=== PATIENT | female | born 1970 | race Caucasian/White ===

== ENCOUNTER 2017-01-30 16:25 | Emergency (ER) | payer SELFPAY ==
[2017-01-30 16:30] VITALS: BMI 34.6
--- NOTE | 2017-01-30 18:23 | C.PDOC ---
History Of Present Illness 46 year old female presents to the ED c/o a rash on the lateral aspect of the breasts bilateral, non pruritic, non painful for the past 2 days, she also c/o chest wall discomfort bilaterally to the parasternal aspect. Patient's physical exam was chaperoned by nurse Zita. Time Seen by Provider: 01/30/17 17:00 Chief Complaint (Nursing): Abnormal Skin Integrity History Per: Patient History/Exam Limitations: no limitations Onset/Duration Of Symptoms: Days Current Symptoms Are (Timing): Still Present Location Of Injury: Right: Chest (Parasternal, bilateral lateral breasts), Left : Chest, Anterior: Chest Quality Of Symptoms: Other (Rash). denies: Painful, Itching Recent travel outside of the [place]: No Additional History Per: Patient Past Medical History Reviewed: Historical Data, Nursing Documentation, Vital Signs Vital Signs: Last Vital Signs Temp 98.4 F 01/30/17 18:50 Pulse 68 01/30/17 18:50 Resp 16 01/30/17 18:50 BP 148/74 01/30/17 18:50 Pulse Ox 98 01/30/17 20:13 - Medical History PMH: No Chronic Diseases Surgical History: No Surg Hx Family History: States: Unknown Family Hx - Social History Hx Alcohol Use: No Hx Substance Use: No - Immunization History Hx Tetanus Toxoid Vaccination: No Hx Influenza Vaccination: Yes (12/2016) Hx Pneumococcal Vaccination: No Review Of Systems Constitutional: Negative for: Fever, Chills Cardiovascular: Positive for: Chest Pain (Parasternal bilateral). Negative for : Palpitations Respiratory: Negative for: Cough, Shortness of Breath Gastrointestinal: Negative for: Nausea, Vomiting, Abdominal Pain Skin: Positive for: Rash (Bilateral lateral breasts) Neurological: Negative for: Weakness, Numbness Physical Exam - Physical Exam Appears: Non-toxic, No Acute Distress Skin: Rash (Bilateral lateral breasts, distributions of the bra) Head: Atraumatic, Normacephalic Oral Mucosa: Moist Neck: Normal ROM, Supple Lymphatic: No Adenopathy Chest: Symmetrical, Tenderness (Digitally reproducible intercostal spaces bilateral parasternal area) Cardiovascular: Rhythm Regular, No Murmur Respiratory: Normal Breath Sounds, No Accessory Muscle Use, No Rales, No Rhonchi , No Wheezing Gastrointestinal/Abdominal: Soft, No Tenderness Extremity: Normal ROM, No Pedal Edema, No Calf Tenderness, No Swelling Neurological/Psych: Oriented x3, Normal Speech, Normal Cognition Gait: Steady ED Course And Treatment O2 Sat by Pulse Oximetry: 98 (On RA) Pulse Ox Interpretation: Normal Medical Decision Making Medical Decision Making: mild non-pruritic rash b/l lateral breasts NOT c/w Zoster, probab irritation from bra material Talk power educated. body aches, motrin Disposition Doctor Will See Patient In The: Office Counseled Patient/Family Regarding: Studies Performed, Diagnosis - Disposition Referrals: Sarah Green MD [Staff Provider] - Disposition: HOME/ ROUTINE Disposition Time: 18:23 Condition: GOOD Additional Instructions: breast rash: continue baby powder 2x/day Chest wall discomfort: motrin 400-600 mg every 6 hours as needed Follow-up w Dr. Green as needed. Instructions: Costochondritis (ED), Dermatitis (ED) Forms: [facility] (Faroese) - Clinical Impression Clinical Impression: Rash, Chest wall discomfort - Scribe Statement The provider has reviewed the documentation as recorded by the Scribe Kenneth Hung All medical record entries made by the Scribe were at my direction and personally dictated by me. I have reviewed the chart and agree that the record accurately reflects my personal performance of the history, physical exam, medical decision making, and the department course for this patient. I have also personally directed, reviewed, and agree with the discharge instructions and disposition.
[2017-01-30 18:51] VITALS: BP 148/74; PULSE 68; RESP 16; TEMP 98.4
[2017-01-30 20:08] VITALS: O2SAT 98
== END 2017-01-30 18:51 | disposition home or self-care (01) ==
LOC: C.ER 16:25
DX: R07.89 Other chest pain (principal); R21 Rash and other nonspecific skin eruption

== ENCOUNTER 2017-02-03 18:01 | Emergency (ER) | payer SELFPAY ==
[2017-02-03 18:01] VITALS: BMI 34.6
[2017-02-03 18:20] VITALS: BP 121/85; PULSE 81; RESP 20; TEMP 99; O2SAT 99
--- NOTE | 2017-02-03 19:10 | C.PDOC ---
History Of Present Illness 46 y/o female presents to ED with complaints of diffuse rash worsening over 4 days. Patient states rash started initially to lateral aspect of both breasts and was itchy; and over 4 days, has spread to entire body. Patient denies using new soaps, shampoos, creams, medication, or foods. pt has mild cough. denies fever, sob, chills. denies sick contacts. denies any recent travel. Time Seen by Provider: 02/03/17 18:55 Chief Complaint (Nursing): Abnormal Skin Integrity History Per: Patient, Family History/Exam Limitations: no limitations Onset/Duration Of Symptoms: Days Current Symptoms Are (Timing): Still Present Quality Of Symptoms: Itching Severity: Moderate Additional History Per: Family Past Medical History Reviewed: Historical Data, Nursing Documentation, Vital Signs Vital Signs: Last Vital Signs Temp 99.0 F 02/03/17 18:16 Pulse 81 02/03/17 18:16 Resp 20 02/03/17 21:23 BP 121/85 02/03/17 18:16 Pulse Ox 99 02/07/17 00:04 - Medical History PMH: No Chronic Diseases Surgical History: No Surg Hx Family History: States: No Known Family Hx - Social History Hx Tobacco Use: No Hx Alcohol Use: No Hx Substance Use: No - Immunization History Hx Tetanus Toxoid Vaccination: No Hx Influenza Vaccination: Yes (12/2016) Hx Pneumococcal Vaccination: No Review Of Systems Constitutional: Negative for: Fever, Chills Cardiovascular: Negative for: Chest Pain Respiratory: Positive for: Cough. Negative for: Shortness of Breath, Hemoptysis , Sputum Gastrointestinal: Negative for: Vomiting, Abdominal Pain Skin: Positive for: Rash Neurological: Negative for: Weakness, Numbness Physical Exam - Physical Exam Appears: Well, Non-toxic, No Acute Distress Skin: Warm, Dry, Rash (diffuse fine maculopapular rash to arms, legs, anterior chest, back. coalesced rash to bilateral lateral breasts. ) Eye(s): bilateral: Normal Inspection Oral Mucosa: Moist, Other (no koplik spots noted) Tongue: Normal Appearing Lips: Normal Appearing Teeth: Normal Dentition Throat: Normal, No Erythema, Other (no lopliks spots noted) Neck: Normal ROM, Supple Chest: No Deformity, No Tenderness Cardiovascular: Rhythm Regular, No Murmur Respiratory: Normal Breath Sounds, No Rales, No Rhonchi, No Stridor, No Wheezing Gastrointestinal/Abdominal: Soft, No Tenderness Extremity: Normal ROM, No Tenderness, No Pedal Edema Neurological/Psych: Oriented x3, Normal Speech, Normal Cognition, Normal Motor, Normal Sensation Additional Physical Exam Comments: Constitutional: No acute distress. Overweight Head: Normocephalic. Atraumatic. Eyes: PERRL. EOMI. ENT: Moist mucous membranes. Neck: Supple. (-)meningeal signs Cardiovascular: Regular rate and rhythm. Chest: No tenderness. Respiratory: Clear to auscultation bilaterally. GI: Soft. Nontender. Nondistended. Normoactive bowel sounds. No rebound. No guarding. Back: No CVA and no mid-line tenderness. Musculoskeletal: No tenderness or swelling of extremities. Skin: maculopapular rash to chest, bilateral breast, abdomen, legs and back Neurologic: Alert, no focal deficit. ED Course And Treatment - Laboratory Results Result Diagrams: 02/03/17 19:42 02/03/17 19:42 O2 Sat by Pulse Oximetry: 99 (RA) Pulse Ox Interpretation: Normal Medical Decision Making Medical Decision Making: pt with diffuse maculopapular rash to body with no new substances. no fever or chills, non toxic appearing. pt with normal labs. pt given solumedrol and benadryl, with mild decrease in rash while in ED. pt to be discharged with benadryl and prednisone with close pmd f/u. Disposition Counseled Patient/Family Regarding: Studies Performed, Diagnosis, Need For Followup, Rx Given - Disposition Referrals: [facility] [Outside] [facility] [Outside] Disposition: HOME/ ROUTINE Disposition Time: 21:12 Condition: STABLE Additional Instructions: Follow up in medical clinic on Wednesday. Take medications as prescribed. You may feel drowsy from the diphenhydramine. Return to ER if rash worsens, you develop fever or for any other concerning symptoms. Prescriptions: DiphenhydrAMINE [Benadryl] 25 mg PO Q6 #30 cap predniSONE [predniSONE Tab] 2 tab PO DAILY #8 tab Instructions: Acute Rash (ED) Forms: [facility] (Sammarinese), General Discharge Instructions - Clinical Impression Clinical Impression: Rash - PA / MANAGER SEMICONDUCTOR / Resident Statement MD/DO has reviewed & agrees with the documentation as recorded. - Scribe Statement The provider has reviewed the documentation as recorded by the Scribmanuel Mckoy All medical record entries made by the Tracyibmanuel were at my direction and personally dictated by me. I have reviewed the chart and agree that the record accurately reflects my personal performance of the history, physical exam, medical decision making, and the department course for this patient. I have also personally directed, reviewed, and agree with the discharge instructions and disposition.
[2017-02-03] MEDS ORDERED: MethylPREDNISolone 40 mg Vial IVP STA (19:15)
[2017-02-03] MEDS ORDERED: DiphenhydrAMINE 50 mg/ml Inj IVP STA (19:17)
[2017-02-03 19:48] LABS: BASO % 0.9 % (0.0-2.0); EOS # 0.2 K/uL (0.0-0.7); EOS % 3.7 % (0.0-4.0); HEMATOCRIT 37.3 % (34.0-47.0); LYMPH # 0.9 K/uL (1.0-4.3); LYMPH % 17.7 % (20.0-40.0); MEAN CELL VOLUME 82.4 fL (81.0-99.0); MEAN CORPUSCULAR HEMOGLOBIN 27.5 pg (27.0-31.0); MEAN CORPUSCULAR HGB CONC 33.3 g/dL (33.0-37.0); MEAN PLATELET VOLUME 8.6 fL (7.2-11.7); MONO # 0.2 K/uL (0.0-0.8); MONO % 5.1 % (0.0-10.0); NRBC % 0.1 % (0.0-2.0); WHITE BLOOD COUNT 4.9 K/uL (4.8-10.8)
[2017-02-03] MEDS ORDERED: DiphenhydrAMINE 50 mg/ml Inj ONE (19:49)
[2017-02-03 19:55] LABS: INR 1.1
[2017-02-03 19:56] LABS: RBC URINE 6 /hpf (0-3); URINE BACTERIA MOD (<OCC); URINE BILIRUBIN NEGATIVE (NEGATIVE); URINE BLOOD 1+ (NEGATIVE); URINE COLOR Yellow (YELLOW); URINE GLUCOSE (UA) NORMAL (Normal); URINE KETONE 1+ mg/dL (NEGATIVE); URINE LEUKOCYTE ESTERASE NEG Leu/uL (Negative); URINE PROTEIN NEGATIVE (NEGATIVE); URINE UROBILINOGEN NORMAL mg/dL (0.2-1.0); WBC URINE 3 /hpf (0-5)
[2017-02-03 20:12] LABS: ALB/GLOB RATIO 1.3 (1.0-2.1); ALKALINE PHOSPHATASE 66 U/L (38-126); ALT/SGPT 42 U/L (9-52); AST/SGOT 24 U/L (14-36); BILIRUBIN,TOTAL 0.8 mg/dL (0.2-1.3); BLOOD UREA NITROGEN 7 mg/dL (7-17); CALCIUM 8.4 mg/dl (8.6-10.4); CARBON DIOXIDE 25 mmol/L (22-30); CHLORIDE 99 mmol/L (98-107); GFR AFRICAN-AMERICAN > 60; GLUCOSE,RANDOM 97 mg/dL (65-105); POTASSIUM 3.5 mmol/L (3.6-5.2); SODIUM 133 mmol/L (132-148); TOTAL PROTEIN 7.2 g/dL (6.3-8.3)
== END 2017-02-03 21:23 | disposition home or self-care (01) ==
LOC: C.ER 18:01
DX: R21 Rash and other nonspecific skin eruption (principal)
CPT/HCPCS: 80053; 81001; 85025; 85610; 85730; 96374; 96375; 99283; J1200; J2920

== ENCOUNTER 2017-02-23 03:28 | Emergency (ER) | payer SELFPAY ==
[2017-02-23 03:28] VITALS: BMI 40.0
[2017-02-23 03:42] VITALS: O2SAT 96
--- NOTE | 2017-02-23 03:48 | C.PDOC ---
Time Seen by Provider: 02/23/17 03:46 Chief Complaint (Nursing): Flu-like Symptoms Past Medical History Vital Signs: Last Vital Signs Temp 98.6 F 02/23/17 03:36 Pulse 70 02/23/17 03:36 Resp 20 02/23/17 03:36 BP 121/83 02/23/17 03:36 Pulse Ox 96 02/23/17 03:36 Family History: States: Unknown Family Hx - Social History Hx Tobacco Use: No Hx Alcohol Use: No Hx Substance Use: No - Immunization History Hx Tetanus Toxoid Vaccination: No Hx Influenza Vaccination: Yes (12/2016) Hx Pneumococcal Vaccination: No ED Course And Treatment O2 Sat by Pulse Oximetry: 96 Disposition - Disposition
--- NOTE | 2017-02-23 04:09 | C.PDOC ---
History Of Present Illness 46 y/o female presents to ER with c/o of generalized body aches x 1wk. Pt took OTC advil with no relief. Pt denies trauma, URI sx, fever, weakness or worse Time Seen by Provider: 02/23/17 03:46 Chief Complaint (Nursing): Flu-like Symptoms History Per: Patient History/Exam Limitations: no limitations Current Symptoms Are (Timing): Still Present Severity: Moderate Past Medical History Vital Signs: Last Vital Signs Temp 98.6 F 02/23/17 03:36 Pulse 70 02/23/17 03:36 Resp 20 02/23/17 03:36 BP 121/83 02/23/17 03:36 Pulse Ox 96 02/23/17 03:48 - Medical History PMH: No Chronic Diseases Family History: States: Unknown Family Hx - Social History Hx Tobacco Use: No Hx Alcohol Use: No Hx Substance Use: No - Immunization History Hx Tetanus Toxoid Vaccination: No Hx Influenza Vaccination: Yes (12/2016) Hx Pneumococcal Vaccination: No Review Of Systems Constitutional: Negative for: Fever Musculoskeletal: Positive for: Other (Joint pain- diffuse) Neurological: Negative for: Weakness, Numbness Physical Exam - Physical Exam Appears: Well, Non-toxic, No Acute Distress Skin: Warm Head: Atraumatic Eye(s): bilateral: Normal Inspection, PERRL, EOMI Oral Mucosa: Moist Throat: Normal Neck: Normal, Supple Chest: Symmetrical, No Tenderness Cardiovascular: Rhythm Regular, No Murmur Respiratory: Normal Breath Sounds, No Rhonchi, No Wheezing Gastrointestinal/Abdominal: Normal Exam, Soft, No Tenderness Back: Normal Inspection Extremity: Normal ROM (but minimal pain to all extremities on motion ), Tenderness (minimally diffuse jt on palpation), No Pedal Edema, Capillary Refill (<2 sec), No Deformity, No Swelling, Other Extremity: Bilateral: Atraumatic, Normal Color And Temperature Pulses: Left Radial: Normal, Right Radial: Normal, Left Dorsalis Pedis: Normal, Right Dorsalis Pedis: Normal Neurological/Psych: Oriented x3, Normal Motor, Normal Sensation Gait: Steady ED Course And Treatment O2 Sat by Pulse Oximetry: 96 Pulse Ox Interpretation: Normal Progress Note: Toradol IM and PO prednisone ordered. On reassessment pt reports improvement of the pain and in no acute painful distress. Pt eill follow up in clinic, return precautions discussed and understoos by pt. ( spouse at bedside translated with pt's consent) Reassessment Condition: Improved Disposition Counseled Patient/Family Regarding: Diagnosis, Need For Followup, Rx Given - Disposition Referrals: [facility] [Outside] Disposition: HOME/ ROUTINE Disposition Time: 04:19 Condition: STABLE Additional Instructions: Please take all medications as peescribed Follow up in clinic Retun to ER if worse Prescriptions: Naproxen [Naprosyn] 1 tab PO BID PRN #20 tab PRN Reason: Pain predniSONE [Prednisone] 20 mg PO DAILY #7 tab Instructions: Arthralgia (ED) Forms: [facility] (Croatian) - Clinical Impression Clinical Impression: Arthralgia
[2017-02-23 05:19] VITALS: BP 112/79; PULSE 61; RESP 22; TEMP 98.2
== END 2017-02-23 05:09 | disposition home or self-care (01) ==
LOC: C.ER 03:28
DX: M25.50 Pain in unspecified joint (principal)
CPT/HCPCS: 96372; 99284; J1885

== ENCOUNTER 2017-09-21 22:11 | Emergency (ER) | payer MEDICAID, OTHER ==
[2017-09-21 22:12] VITALS: BMI 38.5
--- NOTE | 2017-09-21 22:23 | C.PDOC ---
History Of Present Illness Patient presents to the ER with a complaint of left breast pain that radiates to the neck since yesterday, associated with 1 episode of vomiting this morning. Medics gave patient 324 aspirin and 2 sublingual nitro without any relief. On arrival patient states the pain is to her left breast. Denies SOB, palpitations, fever, or chills. Time Seen by Provider: 09/21/17 22:23 History Per: Patient History/Exam Limitations: no limitations Onset/Duration Of Symptoms: Days Current Symptoms Are (Timing): Still Present Context: Other Severity: Moderate Pain Scale Rating Of: 4 Quality: Dull Associated Symptoms: Other (Vomiting) Modifying Factors: None Exacerbating Factors: None Alleviating Factors: None Recent travel outside of the [place]: No Additional History Per: Patient Past Medical History Reviewed: Historical Data, Nursing Documentation, Vital Signs Vital Signs: Last Vital Signs Temp 97.9 F 09/21/17 22:24 Pulse 70 09/21/17 22:24 Resp 16 09/21/17 22:24 BP 125/54 L 09/21/17 22:24 Pulse Ox 98 09/21/17 22:24 Surgical History: No Surg Hx Family History: States: No Known Family Hx - Social History Hx Tobacco Use: No Hx Alcohol Use: No Hx Substance Use: No - Immunization History Hx Tetanus Toxoid Vaccination: No Hx Influenza Vaccination: Yes (12/2016) Hx Pneumococcal Vaccination: No Review Of Systems Constitutional: Negative for: Fever, Chills Cardiovascular: Negative for: Chest Pain, Palpitations Respiratory: Negative for: Cough, Shortness of Breath Gastrointestinal: Positive for: Vomiting Genitourinary: Negative for: Dysuria Musculoskeletal: Positive for: Other (Left breast pain) Skin: Negative for: Rash Neurological: Negative for: Weakness, Numbness Psych: Positive for: Anxiety Physical Exam - Physical Exam Appears: Non-toxic Skin: Warm, Dry Head: Normacephalic Eye(s): bilateral: Normal Inspection Oral Mucosa: Moist Neck: Supple Chest: Other (Left breast 3x6cm mass on lateral aspect(patient examined with nurse at bedside)) Cardiovascular: Rhythm Regular Respiratory: No Rales, No Rhonchi, No Wheezing Gastrointestinal/Abdominal: Soft, No Tenderness Back: Normal Inspection Extremity: Normal ROM Extremity: Bilateral: Atraumatic Pulses: Left Dorsalis Pedis: Normal, Right Dorsalis Pedis: Normal Neurological/Psych: Oriented x3 Gait: Steady ED Course And Treatment - Laboratory Results Result Diagrams: 09/22/17 00:15 09/22/17 00:15 ECG: Interpreted By Me, Viewed By Me ECG Rhythm: Sinus Rhythm (61), Nonspecific Changes Pulse Ox Interpretation: Normal - Radiology CXR: Interpreted by Me, Viewed By Me CXR Interpretation: No: Infiltrates, Fracture, Pnemothorax Progress Note: EKG, blood work, CXR, urinalysis, and breast US ordered. Reevaluation Time: 01:54 Reassessment Condition: Improved Disposition Counseled Patient/Family Regarding: Studies Performed, Diagnosis, Need For Followup, Rx Given - Disposition Referrals: [facility] [Outside] [facility] [Outside] [facility] [Outside] Disposition: HOME/ ROUTINE Disposition Time: 22:23 Condition: FAIR Additional Instructions: [facility] Prescriptions: Naproxen [Naprosyn] 1 tab PO BID PRN #25 tab PRN Reason: Pain Instructions: Mastalgia (DC) - Clinical Impression Clinical Impression: Cyst of breast, Pain of breast - Scribe Statement The provider has reviewed the documentation as recorded by the Scribe Samuel Damico All medical record entries made by the Scribe were at my direction and personally dictated by me. I have reviewed the chart and agree that the record accurately reflects my personal performance of the history, physical exam, medical decision making, and the department course for this patient. I have also personally directed, reviewed, and agree with the discharge instructions and disposition.
[2017-09-21 22:30] VITALS: TEMP 97.9
[2017-09-21] MEDS ORDERED: Aspirin 325 mg EC Tablets PO STA (22:32)
[2017-09-22 00:23] LABS: BASO # 0.1 K/uL (0.0-0.2); BASO % 0.9 % (0.0-2.0); EOS # 0.1 K/uL (0.0-0.7); EOS % 1.5 % (0.0-4.0); HEMOGLOBIN 10.9 g/dL (11.0-16.0); LYMPH # 2.1 K/uL (1.0-4.3); LYMPH % 36.7 % (20.0-40.0); MEAN CELL VOLUME 79.3 fL (81.0-99.0); MEAN CORPUSCULAR HEMOGLOBIN 26.2 pg (27.0-31.0); MEAN CORPUSCULAR HGB CONC 33.1 g/dL (33.0-37.0); MEAN PLATELET VOLUME 9.4 fL (7.2-11.7); MONO # 0.3 K/uL (0.0-0.8); NEUT # 3.1 K/uL (1.8-7.0); NEUT % 54.9 % (50.0-75.0); RBC 4.17 Mil/uL (3.80-5.20); RED CELL DISTRIBUTION WIDTH 15.2 % (11.5-14.5); WHITE BLOOD COUNT 5.7 K/uL (4.8-10.8)
[2017-09-22 00:32] LABS: PROTHROMBIN TIME 11.4 SECONDS (9.7-12.2)
[2017-09-22 00:51] LABS: SQUAMOUS EPITHIAL 2 /hpf (0-5); URINE BACTERIA RARE (<OCC); URINE BILIRUBIN NEGATIVE (NEGATIVE); URINE BLOOD NEGATIVE (NEGATIVE); URINE CLARITY Clear (Clear); URINE COLOR Straw (YELLOW); URINE GLUCOSE (UA) NORMAL (Normal); URINE LEUKOCYTE ESTERASE NEG Leu/uL (Negative); URINE PROTEIN NEGATIVE (NEGATIVE); URINE UROBILINOGEN NORMAL mg/dL (0.2-1.0)
[2017-09-22 00:57] LABS: ALB/GLOB RATIO 1.3 (1.0-2.1); ALBUMIN 3.8 g/dL (3.5-5.0); CALCIUM 8.5 mg/dl (8.6-10.4); GFR AFRICAN-AMERICAN > 60; GFR NON-AFRICAN AMERICAN > 60; HDL CHOLESTEROL 40 mg/dL (30-70)
[2017-09-22 01:06] LABS: LDL CHOLESTEROL 114 mg/dL (0-129)
[2017-09-22 01:17] LABS: B-TYPE NATRIURETIC PEPTIDE 88.9 pg/mL (0-450)
[2017-09-22 01:19] LABS: ALT/SGPT 24 U/L (9-52); AST/SGOT 20 U/L (14-36); BLOOD UREA NITROGEN 6 mg/dL (7-17)
[2017-09-22 02:31] VITALS: BP 143/89; PULSE 58; RESP 20; O2SAT 100
--- NOTE | 2017-09-22 10:01 | US ---
Date of service: 09/21/2017 PROCEDURE: Ultrasound left breast HISTORY: left breast mass Pain -2010 o'clock COMPARISON: None TECHNIQUE: Standard protocol for this study/examination. FINDINGS: Cyst(s): Complex cyst 2-3 o'clock 8 cm from nipple 6 x 9 x 10 mm. Breast mass: None Dilated ducts: None Parenchymal distortion: None Skin thickening or subcutaneous abnormalities: None Morphologically, unremarkable lymph node(s) measuring 7 x 17 mm. No abnormalities in the region of interest with the patient presents with pain. IMPRESSION: BIRADS 0 Incomplete - Need additional imaging evaluation and/or prior mammograms for comparisonRecommendation: Recall for additional imaging and/or comparison with prior examination, as described above. Patient will be contacted. Recommendation: Follow-up mammogram to be compared with the current study.
--- NOTE | 2017-09-22 10:05 | RAD ---
Date of service: 09/21/2017 PROCEDURE: CHEST RADIOGRAPH, 1 VIEW HISTORY: chest pain COMPARISON: 01/27/2017 FINDINGS: LUNGS: Clear. PLEURA: No pneumothorax or pleural fluid seen. CARDIOVASCULAR: Normal. OSSEOUS STRUCTURES: No significant abnormalities. VISUALIZED UPPER ABDOMEN: Normal. OTHER FINDINGS: None. IMPRESSION: No active disease. No acute/significant interval changes. Concordant results with the preliminary interpretation rendered by the emergency department physician procedure.
--- NOTE | 2017-09-23 12:16 | CARD ---
APPROVED REPORT Date of service: 09/21/2017 EKG Measurement Heart [id number] <Conclusion> Normal sinus rhythm Nonspecific T wave abnormality Abnormal ECG
== END 2017-09-22 02:30 | disposition home or self-care (01) ==
LOC: C.ER 22:11
DX: N60.02 Solitary cyst of left breast (principal); N64.4 Mastodynia
CPT/HCPCS: 71045; 76642; 80053; 80061; 81001; 82948; 83880; 84484; 85025; 85610; 85730; 93005; 96374; 99285; J1885

== ENCOUNTER 2017-12-17 07:50 | Emergency (ER) | payer SELFPAY ==
[2017-12-17 07:50] VITALS: BMI 38.5
[2017-12-17 08:01] VITALS: PULSE 66; TEMP 98.6
[2017-12-17] MEDS ORDERED: Sodium Chloride 0.9% 1,000 ML IV STA (08:14)
[2017-12-17 08:41] LABS: HCG,QUALITATIVE URINE NEGATIVE (NEGATIVE)
[2017-12-17] MEDS ORDERED: Sodium Chloride 0.9% 1,000 ML ONE (08:41)
[2017-12-17 08:46] LABS: SQUAMOUS EPITHIAL 2 /hpf (0-5); URINE BACTERIA OCC (<OCC); URINE BILIRUBIN NEGATIVE (NEGATIVE); URINE BLOOD NEGATIVE (NEGATIVE); URINE CLARITY Clear (Clear); URINE COLOR Straw (YELLOW); URINE GLUCOSE (UA) NORMAL (Normal); URINE LEUKOCYTE ESTERASE NEG Leu/uL (Negative); URINE PROTEIN NEGATIVE (NEGATIVE); URINE UROBILINOGEN NORMAL mg/dL (0.2-1.0)
[2017-12-17 08:47] LABS: BASO % 0.7 % (0.0-2.0); EOS # 0.1 K/uL (0.0-0.7); EOS % 1.4 % (0.0-4.0); HEMOGLOBIN 11.8 g/dL (11.0-16.0); LYMPH # 2.4 K/uL (1.0-4.3); LYMPH % 34.7 % (20.0-40.0); MEAN CELL VOLUME 78.6 fL (81.0-99.0); MEAN CORPUSCULAR HEMOGLOBIN 25.8 pg (27.0-31.0); MEAN CORPUSCULAR HGB CONC 32.8 g/dL (33.0-37.0); MONO # 0.5 K/uL (0.0-0.8); MONO % 6.6 % (0.0-10.0); NEUT # 3.9 K/uL (1.8-7.0); NEUT % 56.6 % (50.0-75.0); RBC 4.58 Mil/uL (3.80-5.20); RED CELL DISTRIBUTION WIDTH 15.3 % (11.5-14.5)
[2017-12-17 09:10] LABS: ALB/GLOB RATIO 1.4 (1.0-2.1); ALBUMIN 4.4 g/dL (3.5-5.0); ALT/SGPT 22 U/L (9-52); AST/SGOT 18 U/L (14-36); BLOOD UREA NITROGEN 6 mg/dL (7-17); CALCIUM 9.3 mg/dl (8.6-10.4); GFR NON-AFRICAN AMERICAN > 60
--- NOTE | 2017-12-17 10:48 | CT ---
Date of service: 12/17/2017 PROCEDURE: CT HEAD WITHOUT CONTRAST. HISTORY: headache, dizziness COMPARISON: None available. TECHNIQUE: Axial computed tomography images were obtained through the head/brain without intravenous contrast. Radiation dose: Total exam DLP = 1177.69 mGy-cm. This CT exam was performed using one or more of the following dose reduction techniques: Automated exposure control, adjustment of the mA and/or kV according to patient size, and/or use of iterative reconstruction technique. FINDINGS: HEMORRHAGE: No intracranial hemorrhage. BRAIN: There are mild chronic microangiopathic changes. There is no mass, mass effect or abnormal extra-axial fluid collection. There is no territorial infarction. The midline sagittal structures are normal. VENTRICLES: The ventricles are normal in size, shape and configuration. CALVARIUM: There is no calvarial fracture or extracranial soft tissue swelling. PARANASAL SINUSES: Predominantly clear. MASTOID AIR CELLS: Predominantly clear. OTHER FINDINGS: None. IMPRESSION: No acute intracranial abnormality.
[2017-12-17 11:26] VITALS: BP 112/73; RESP 18
[2017-12-17 11:27] VITALS: O2SAT 98
--- NOTE | 2017-12-17 11:27 | C.PDOC ---
History Of Present Illness 47 y/o female presents to ED for evaluation of dizziness, and intermittent headache for the last 4 days. Notes dizziness is worse when she moves her head and when bending over. Pt admits to having 2 episodes of vomiting. Denies visual changes, weakness, numbness, chest pain, shortness of breath, fever, chills, abdominal pain, or other complaints at this time. Time Seen by Provider: 12/17/17 08:07 Chief Complaint (Nursing): Dizziness/Lightheaded History Per: Patient History/Exam Limitations: no limitations Onset/Duration Of Symptoms: Days Current Symptoms Are (Timing): Still Present Past Medical History Reviewed: Historical Data, Nursing Documentation, Vital Signs Vital Signs: Last Vital Signs Temp 98.6 F 12/17/17 07:55 Pulse 66 12/17/17 07:55 Resp 19 12/17/17 07:55 BP 114/77 12/17/17 07:55 Pulse Ox 98 12/17/17 07:55 Family History: States: Unknown Family Hx - Social History Hx Tobacco Use: No Hx Alcohol Use: No Hx Substance Use: No - Immunization History Hx Tetanus Toxoid Vaccination: No Hx Influenza Vaccination: Yes (12/2016) Hx Pneumococcal Vaccination: No Review Of Systems Except As Marked, All Systems Reviewed And Found Negative. Constitutional: Negative for: Fever, Chills Cardiovascular: Negative for: Chest Pain Respiratory: Negative for: Shortness of Breath Gastrointestinal: Positive for: Nausea, Vomiting. Negative for: Abdominal Pain, Diarrhea Neurological: Positive for: Headache, Dizziness. Negative for: Weakness, Numbness Physical Exam - Physical Exam Appears: Non-toxic, No Acute Distress Skin: Normal Color, Warm, Dry Head: Atraumatic, Normacephalic Eye(s): bilateral: Normal Inspection Oral Mucosa: Moist Neck: Normal ROM, Supple Cardiovascular: Rhythm Regular, No Murmur Respiratory: Normal Breath Sounds, No Rales, No Rhonchi, No Wheezing Gastrointestinal/Abdominal: Soft, No Tenderness Extremity: Normal ROM Neurological/Psych: Oriented x3, Normal Speech, No Other (no focal deficits) ED Course And Treatment - Laboratory Results Result Diagrams: 12/17/17 08:36 12/17/17 08:36 ECG: Interpreted By Me, Viewed By Me ECG Rhythm: Sinus Rhythm ECG Interpretation: No Acute Changes Interpretation Of ECG: Q wave in lead III. Rate From EC (bpm) O2 Sat by Pulse Oximetry: 98 (RA) Pulse Ox Interpretation: Normal - CT Scan/US Head CT Other Rad Studies (CT/US): Read By Radiologist, Radiology Report Reviewed CT/US Interpretation: Accession No. : [id number]. Patient Name / ID : LIA COLIN / [id number]. Exam Date : 12/17/2017 10:31:12 ( Approved ). Study Comment : Sex / Age : F / 47Y. Creator : Kenisha Jerez MD. Dictator : Kenisha Jerez MD. Industrial Real Estate Agent : Tow Motor Operator : Kenisha Jerez MD. Approver2 : Report Date : 12/17/2017 10:47:19. My Comment : . Date of service: 12/17/2017. PROCEDURE: CT HEAD WITHOUT CONTRAST. HISTORY: headache, dizziness. COMPARISON: None available. TECHNIQUE: Axial computed tomography images were obtained through the head/brain without intravenous contrast. Radiation dose: Total exam DLP = 1177.69 mGy-cm. This CT exam was performed using one or more of the following dose reduction techniques: Automated exposure control, adjustment of the mA and/or kV according to patient size, and/or use of iterative reconstruction technique. FINDINGS: HEMORRHAGE: No intracranial hemorrhage. BRAIN: There are mild chronic microangiopathic changes. There is no mass, mass effect or abnormal extra-axial fluid collection. There is no territorial infarction. The midline sagittal structures are normal. VENTRICLES: The ventricles are normal in size, shape and configuration. CALVARIUM: There is no calvarial fracture or extracranial soft tissue swelling. PARANASAL SINUSES: Predominantly clear. MASTOID AIR CELLS: Predominantly clear. OTHER FINDINGS: None. IMPRESSION: No acute intracranial abnormality. Medical Decision Making Medical Decision Making: Plan: Blood work Urinalysis Head CT EKG Meclizine IV fluids On re-evaluation patient feels better, has no neuro deficit, no vomiting, ambulatory. Patient is being discharged home with Rx and is instructed to follow up with PMD in 1-2 days. Disposition - Disposition Referrals: [facility] at [facility] [Outside] Disposition: HOME/ ROUTINE Disposition Time: 11:32 Condition: STABLE Additional Instructions: Follow up with your PMD within 1-2 days. Return to ED if feel worse. Prescriptions: Meclizine [Meclizine*] 25 mg PO Q6 #30 tab Instructions: Vertigo (a Type of Dizziness) Forms: [email or web address] (Hungarian) - Clinical Impression Clinical Impression: Dizziness - PA / INFORMATICS DEVELOPER / Resident Statement MD/DO has reviewed & agrees with the documentation as recorded. - Scribe Statement The provider has reviewed the documentation as recorded by the Scribe KP All medical record entries made by the Scribe were at my direction and personally dictated by me. I have reviewed the chart and agree that the record accurately reflects my personal performance of the history, physical exam, medical decision making, and the department course for this patient. I have also personally directed, reviewed, and agree with the discharge instructions and disposition.
--- NOTE | 2017-12-20 10:53 | CARD ---
APPROVED REPORT Date of service: 12/17/2017 EKG Measurement Heart [id number] <Conclusion> Normal sinus rhythm Cannot rule out Anterior infarct, age undetermined Abnormal ECG
== END 2017-12-17 11:56 | disposition home or self-care (01) ==
LOC: C.ER 07:50
DX: R42 Dizziness and giddiness (principal)
CPT/HCPCS: 70450; 80053; 81001; 84703; 85025; 96360; 99285; J7030

== ENCOUNTER 2018-06-09 01:01 | Emergency (ER) | payer SELFPAY ==
[2018-06-09 01:01] VITALS: BMI 38.5
[2018-06-09 01:42] LABS: SQUAMOUS EPITHIAL < 1 /hpf (0-5); URINE BILIRUBIN NEGATIVE (NEGATIVE); URINE CLARITY Clear (Clear); URINE COLOR Straw (YELLOW); URINE GLUCOSE (UA) NORMAL (Normal); URINE LEUKOCYTE ESTERASE NEG Leu/uL (Negative); URINE PROTEIN NEGATIVE (NEGATIVE); URINE UROBILINOGEN NORMAL mg/dL (0.2-1.0)
[2018-06-09 01:54] LABS: HCG,QUALITATIVE URINE NEGATIVE (NEGATIVE)
[2018-06-09 01:55] LABS: URINE BLOOD NEGATIVE (NEGATIVE)
[2018-06-09] MEDS ORDERED: Sodium Chloride 0.9% 500 ML IV STA ×2 (02:14→03:27)
[2018-06-09 02:45] LABS: BASO # 0.1 K/uL (0.0-0.2); BASO % 1.3 % (0.0-2.0); EOS # 0.1 K/uL (0.0-0.7); EOS % 1.4 % (0.0-4.0); HEMOGLOBIN 9.4 g/dL (11.0-16.0); LYMPH # 2.3 K/uL (1.0-4.3); MEAN CELL VOLUME 73.8 fL (81.0-99.0); MEAN CORPUSCULAR HEMOGLOBIN 22.8 pg (27.0-31.0); MEAN CORPUSCULAR HGB CONC 30.9 g/dL (33.0-37.0); MEAN PLATELET VOLUME 9.5 fL (7.2-11.7); MONO # 0.3 K/uL (0.0-0.8); MONO % 4.8 % (0.0-10.0); NEUT # 3.8 K/uL (1.8-7.0); NEUT % 57.5 % (50.0-75.0); RBC 4.13 Mil/uL (3.80-5.20); RED CELL DISTRIBUTION WIDTH 18.1 % (11.5-14.5); WHITE BLOOD COUNT 6.7 K/uL (4.8-10.8)
--- NOTE | 2018-06-09 02:47 | C.PDOC ---
History Of Present Illness 47 year old female presents to the ED c/o intermittent heavy menstrual for the past few months. Patient reports bleeding became heavier with clots 4 days ago onset with her LMP. Patient now states having normal flow. Patient also c/o dizziness, feeling tired and having no energy. Patient c/o intermittent chest pain, described as tightness, associated with SOB. Patient also reports her was diagnosed with the flu a week ago. Patient denies fever, chills, headache, cough, congestion, vomit, diarrhea, rash. Time Seen by Provider: 06/09/18 01:30 Chief Complaint (Nursing): Chest Pain History Per: Patient History/Exam Limitations: no limitations Onset/Duration Of Symptoms: Days Current Symptoms Are (Timing): Still Present Quality: Tightness Recent travel outside of the [place]: No Additional History Per: Patient Past Medical History Reviewed: Historical Data, Nursing Documentation, Vital Signs Vital Signs: Last Vital Signs Temp 97.8 F 06/09/18 01:16 Pulse 61 06/09/18 01:16 Resp 16 06/09/18 01:16 BP 117/66 06/09/18 01:16 Pulse Ox 99 06/09/18 01:16 - Medical History PMH: No Chronic Diseases Surgical History: No Surg Hx Family History: States: Unknown Family Hx - Social History Hx Tobacco Use: No Hx Alcohol Use: No Hx Substance Use: No - Immunization History Hx Tetanus Toxoid Vaccination: No Hx Influenza Vaccination: Yes (12/2016) Hx Pneumococcal Vaccination: No Review Of Systems Constitutional: Positive for: Malaise. Negative for: Fever, Chills ENT: Negative for: Nose Discharge, Nose Congestion, Throat Pain Cardiovascular: Positive for: Chest Pain. Negative for: Palpitations Respiratory: Positive for: Shortness of Breath. Negative for: Cough, Wheezing Gastrointestinal: Negative for: Nausea, Vomiting, Abdominal Pain Genitourinary: Positive for: Vaginal Bleeding Musculoskeletal: Negative for: Back Pain Skin: Negative for: Rash Neurological: Positive for: Dizziness. Negative for: Weakness, Numbness, Headache Physical Exam - Physical Exam Appears: Non-toxic, No Acute Distress Skin: Normal Color, Warm, Dry Head: Atraumatic, Normacephalic Eye(s): bilateral: Normal Inspection Ear(s): Bilateral: Normal Oral Mucosa: Moist Throat: Normal, No Erythema, No Exudate Neck: Normal ROM, Supple Chest: Symmetrical Cardiovascular: Rhythm Regular Respiratory: Normal Breath Sounds, No Rales, No Rhonchi, Wheezing Gastrointestinal/Abdominal: Soft, No Tenderness, No Guarding, No Rebound Pelvic: Other (Deferred) Extremity: Normal ROM, No Tenderness, No Swelling Neurological/Psych: Oriented x3, Normal Speech, Normal Cognition Gait: Steady ED Course And Treatment - Laboratory Results Result Diagrams: 06/09/18 02:38 06/09/18 02:38 Lab Results: Urine Color Straw (YELLOW) 06/09/18 01:36 Urine Clarity Clear (Clear) 06/09/18 01:36 Urine pH 6.0 (5.0-8.0) 06/09/18 01:36 Ur Specific Vaughan 1.001 (1.003-1.030) L 06/09/18 01:36 Urine Protein Negative mg/dL (NEGATIVE) 06/09/18 01:36 Urine Glucose (UA) Normal mg/dL (Normal) 06/09/18 01:36 Urine Ketones Negative mg/dL (NEGATIVE) 06/09/18 01:36 Urine Blood Negative (NEGATIVE) 06/09/18 01:36 Urine Nitrate Negative (NEGATIVE) 06/09/18 01:36 Urine Bilirubin Negative (NEGATIVE) 06/09/18 01:36 Urine Urobilinogen Normal mg/dL (0.2-1.0) 06/09/18 01:36 Ur Leukocyte Esterase Neg Deepika/uL (Negative) 06/09/18 01:36 Urine WBC (Auto) < 1 /hpf (0-5) 06/09/18 01:36 Ur Squamous Epith Cells < 1 /hpf (0-5) 06/09/18 01:36 Urine HCG, Qual Negative (NEGATIVE) 06/09/18 01:36 Urine HCG, Qual Negative (NEGATIVE) 06/09/18 01:36 ECG: Interpreted By Me, Viewed By Me ECG Rhythm: Sinus Rhythm Rate From EC (BPM) O2 Sat by Pulse Oximetry: 100 (ON RA) Pulse Ox Interpretation: Normal Progress Note: Plan: - Labs. - IV fluids. - Tylenol 975 mg PO. - UA. Labs reviewed and discussed woiht patient and family at besides, patient woth Hb at 9.1. IV fluids and pain medications given, patient reports improvement of pain remains in no acute distress. Patient prescribed iron supplements, advised to follow up with PMD. Patient agrees and understands plan. 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 - Scribe Statement The provider has reviewed the documentation as recorded by the Scribe Kenneth Hung All medical record entries made by the Tracyibmanuel were at my direction and personally dictated by me. I have reviewed the chart and agree that the record accurately reflects my personal performance of the history, physical exam, medical decision making, and the department course for this patient. I have also personally directed, reviewed, and agree with the discharge instructions and disposition.
[2018-06-09 02:55] LABS: ALB/GLOB RATIO 1.5 (1.0-2.1); ALBUMIN 3.9 g/dL (3.5-5.0); BLOOD UREA NITROGEN 8 mg/dL (7-17); CALCIUM 9.3 mg/dl (8.6-10.4); GFR NON-AFRICAN AMERICAN > 60
[2018-06-09 02:56] VITALS: TEMP 98
[2018-06-09 03:33] LABS: ALT/SGPT 10 U/L (9-52); AST/SGOT 27 U/L (14-36)
[2018-06-09 03:46] VITALS: BP 126/70; PULSE 67; RESP 18
[2018-06-09 03:48] VITALS: O2SAT 100
--- NOTE | 2018-06-10 11:14 | CARD ---
APPROVED REPORT Date of service: 06/09/2018 EKG Measurement Heart [id number] <Conclusion> Normal sinus rhythm Normal ECG
== END 2018-06-09 04:38 | disposition home or self-care (01) ==
LOC: C.ER 01:01
DX: D64.9 Anemia, unspecified (principal)
CPT/HCPCS: 80053; 81001; 84443; 84484; 84703; 85025; 93005; 96360; 96361; 99285; J7040

== ENCOUNTER 2018-06-11 19:56 | Emergency (ER) | payer SELFPAY ==
[2018-06-11 19:56] VITALS: BMI 38.5
[2018-06-11 20:03] VITALS: RESP 18
--- NOTE | 2018-06-11 20:56 | C.PDOC ---
History Of Present Illness 47 year old female with Hx of anemia presents reporting headache for a week. Patient was seen and discharged a few days ago from the ER for anemia. Denies fever or other complaints. Time Seen by Provider: 06/11/18 20:09 Chief Complaint (Nursing): Headache History Per: Patient History/Exam Limitations: no limitations Onset/Duration Of Symptoms: Days Current Symptoms Are (Timing): Still Present Preceeding Symptoms: None Associated Symptoms: denies: Photophobia, Blurred Vision, Nausea, Vomiting, Extremity Weakness Recent travel outside of the [place]: No Past Medical History Reviewed: Historical Data, Nursing Documentation, Vital Signs Vital Signs: Last Vital Signs Temp 98.2 F 06/11/18 19:59 Pulse 66 06/11/18 19:59 Resp 18 06/11/18 19:59 BP 122/77 06/11/18 19:59 Pulse Ox 100 06/11/18 19:59 - Medical History PMH: Anemia Denies: Chronic Kidney Disease Family History: States: Unknown Family Hx - Social History Hx Tobacco Use: No Hx Alcohol Use: No Hx Substance Use: No - Immunization History Hx Tetanus Toxoid Vaccination: No Hx Influenza Vaccination: Yes (12/2016) Hx Pneumococcal Vaccination: No Review Of Systems Constitutional: Negative for: Fever, Chills Cardiovascular: Negative for: Chest Pain, Palpitations Respiratory: Negative for: Cough, Shortness of Breath Gastrointestinal: Negative for: Nausea, Vomiting Musculoskeletal: Negative for: Neck Pain, Back Pain Neurological: Positive for: Headache. Negative for: Weakness, Numbness, Dizziness Physical Exam - Physical Exam Appears: Non-toxic Skin: Normal Color, Warm Head: Atraumatic, Normacephalic Eye(s): bilateral: Normal Inspection, PERRL, EOMI Oral Mucosa: Moist Neck: Normal, Supple Chest: Symmetrical, No Tenderness Cardiovascular: Rhythm Regular Respiratory: Normal Breath Sounds, No Rales, No Rhonchi, No Wheezing Gastrointestinal/Abdominal: Soft, No Tenderness Extremity: Normal ROM (x4) Neurological/Psych: Oriented x3, Normal Speech ED Course And Treatment - Laboratory Results Result Diagrams: 06/11/18 21:35 06/11/18 21:35 O2 Sat by Pulse Oximetry: 100 (Room air) Pulse Ox Interpretation: Normal Medical Decision Making Medical Decision Making: ro intra cranil pathology, worsening anemai Plan: * CT head * Tylenol h/h baseline. iamging neg. pain improve.d neuro intact. asking for dc. advise outpt fu . Disposition - Disposition Referrals: [facility] [Outside] [facility] [Outside] Rosas Reed MD [Staff Provider] - Disposition: HOME/ ROUTINE Disposition Time: 22:37 Condition: STABLE Additional Instructions: return to er with worsening symptoms or concerns. please see specialist. Instructions: Headache, Adult Forms: [employer] (Indonesian) - Clinical Impression Clinical Impression: Anemia, Headache - Scribe Statement The provider has reviewed the documentation as recorded by the Scribe Samuel Damico All medical record entries made by the Scribe were at my direction and personally dictated by me. I have reviewed the chart and agree that the record accurately reflects my personal performance of the history, physical exam, medical decision making, and the department course for this patient. I have also personally directed, reviewed, and agree with the discharge instructions and disposition.
[2018-06-11 21:38] LABS: BASO # 0.1 K/uL (0.0-0.2); BASO % 0.8 % (0.0-2.0); EOS # 0.1 K/uL (0.0-0.7); HEMOGLOBIN 10.6 g/dL (11.0-16.0); LYMPH # 1.8 K/uL (1.0-4.3); LYMPH % 21.5 % (20.0-40.0); MEAN CELL VOLUME 74.6 fL (81.0-99.0); MEAN CORPUSCULAR HEMOGLOBIN 23.1 pg (27.0-31.0); MEAN CORPUSCULAR HGB CONC 30.9 g/dL (33.0-37.0); MEAN PLATELET VOLUME 9.3 fL (7.2-11.7); MONO # 0.5 K/uL (0.0-0.8); MONO % 5.8 % (0.0-10.0); NEUT % 70.9 % (50.0-75.0); NRBC % 0.1 % (0.0-2.0); RBC 4.59 Mil/uL (3.80-5.20); RED CELL DISTRIBUTION WIDTH 18.7 % (11.5-14.5); WHITE BLOOD COUNT 8.5 K/uL (4.8-10.8)
[2018-06-11 22:07] LABS: ALB/GLOB RATIO 1.6 (1.0-2.1); ALBUMIN 4.4 g/dL (3.5-5.0); ALT/SGPT < 6 U/L (9-52); AST/SGOT 23 U/L (14-36); BLOOD UREA NITROGEN 9 mg/dL (7-17); CALCIUM 9.8 mg/dl (8.6-10.4); GFR NON-AFRICAN AMERICAN > 60
[2018-06-11 22:38] VITALS: BP 118/75; PULSE 64; TEMP 97.7
[2018-06-11 22:57] VITALS: O2SAT 100
--- NOTE | 2018-06-12 09:59 | CT ---
Date of service: 06/11/2018 PROCEDURE: CT HEAD WITHOUT CONTRAST. HISTORY: Headache COMPARISON: Comparison is made with 12/17/2017 TECHNIQUE: Axial computed tomography images were obtained through the head/brain without intravenous contrast. Radiation dose: Total exam DLP = 1205.37 mGy-cm. This CT exam was performed using one or more of the following dose reduction techniques: Automated exposure control, adjustment of the mA and/or kV according to patient size, and/or use of iterative reconstruction technique. FINDINGS: HEMORRHAGE: No intracranial hemorrhage. BRAIN: No mass effect or edema. No atrophy or chronic microvascular ischemic changes. VENTRICLES: Unremarkable. No hydrocephalus. CALVARIUM: Unremarkable. PARANASAL SINUSES: Unremarkable as visualized. No significant inflammatory changes. MASTOID AIR CELLS: Unremarkable as visualized. No inflammatory changes. OTHER FINDINGS: None. IMPRESSION: No evidence of acute intracranial hemorrhage intracranial collection mass effect or midline shift. Preliminary report was submitted by [facility] Radiology contains concordant findings.
== END 2018-06-11 22:53 | disposition home or self-care (01) ==
LOC: C.ER 19:56
DX: R51 Headache (principal); D64.9 Anemia, unspecified

== ENCOUNTER 2018-07-31 00:33 | Emergency (ER) | payer SELFPAY ==
[2018-07-31 00:35] VITALS: BMI 38.5
--- NOTE | 2018-07-31 01:05 | C.PDOC ---
History Of Present Illness 48 year old female with PMHx anemia presents to the ED c/o recurrent headache today. Patient states she is currently fasting for Ramadan, feeling tired and weak. Patient had a negative head CT on 06/11/18. Patient denies fever, chills, neck pain, visual changes, nausea, vomit, dizziness, weakness, numbness, injury, fall, trauma. Time Seen by Provider: 07/31/18 00:56 Chief Complaint (Nursing): Headache History Per: Patient History/Exam Limitations: no limitations Onset/Duration Of Symptoms: Hrs Current Symptoms Are (Timing): Still Present Quality: "Pain" Recent travel outside of the [place]: No Additional History Per: Patient Past Medical History Reviewed: Historical Data, Nursing Documentation, Vital Signs Vital Signs: Last Vital Signs Temp 98.4 F 07/31/18 00:45 Pulse 66 07/31/18 00:45 Resp 18 07/31/18 00:45 BP 117/81 07/31/18 00:45 Pulse Ox 99 07/31/18 00:45 Primary Care Provider: FAMILY PROVIDER,NO - Medical History PMH: Anemia Denies: Chronic Kidney Disease Surgical History: No Surg Hx Family History: States: Unknown Family Hx - Social History Hx Tobacco Use: No Hx Alcohol Use: No Hx Substance Use: No - Immunization History Hx Tetanus Toxoid Vaccination: No Hx Influenza Vaccination: Yes (12/2016) Hx Pneumococcal Vaccination: No Review Of Systems Constitutional: Positive for: Weakness. Negative for: Fever, Chills Eyes: Negative for: Vision Change Gastrointestinal: Negative for: Nausea, Vomiting, Abdominal Pain Musculoskeletal: Negative for: Neck Pain Skin: Negative for: Rash Neurological: Positive for: Headache. Negative for: Weakness, Numbness, Dizziness Physical Exam - Physical Exam Appears: Non-toxic, No Acute Distress Skin: Normal Color, Warm, Dry Head: Atraumatic, Normacephalic Eye(s): bilateral: Normal Inspection, PERRL, EOMI Neck: Normal ROM, No Midline Cervical Tenderness, Supple Chest: Symmetrical Cardiovascular: Rhythm Regular Respiratory: Normal Breath Sounds, No Rales, No Rhonchi, No Wheezing Gastrointestinal/Abdominal: Soft, No Tenderness, No Distention Extremity: Normal ROM, No Tenderness, No Swelling Neurological/Psych: Oriented x3, Normal Speech, Normal Cognition Gait: Steady ED Course And Treatment - Laboratory Results Result Diagrams: 07/31/18 01:12 07/31/18 01:12 O2 Sat by Pulse Oximetry: 99 (ON RA) Pulse Ox Interpretation: Normal Medical Decision Making Medical Decision Making: Plan: * Labs * Decadron 8 mg IVP * Mag sulfate * Reglan 10 mg IVP * IV fluids * Toradol 30 mg IVP Disposition Counseled Patient/Family Regarding: Studies Performed, Diagnosis, Need For Followup, Rx Given - Disposition Referrals: [facility] [Outside] [facility] [Outside] Disposition: HOME/ ROUTINE Disposition Time: 02:00 Condition: IMPROVED Instructions: Dehydration, Adult (DC), Headache, Adult (DC) Forms: [employer] (Albanian) - Clinical Impression Clinical Impression: Headache, Dehydration - Scribe Statement The provider has reviewed the documentation as recorded by the Scribe Kenneth Hung All medical record entries made by the Scribe were at my direction and personally dictated by me. I have reviewed the chart and agree that the record accurately reflects my personal performance of the history, physical exam, medical decision making, and the department course for this patient. I have also personally directed, reviewed, and agree with the discharge instructions and disposition.
[2018-07-31] MEDS ORDERED: Sodium Chloride 0.9% 1,000 ML IV STA (01:06)
[2018-07-31] MEDS ORDERED: Dexamethasone 4 mg/1 ml IVP STA (01:06)
[2018-07-31] MEDS ORDERED: Magnesium Sulfate 1 gm in D5W 1 GM/100 ML BAG IVPB STA (01:06)
[2018-07-31 01:16] LABS: BASO % 0.6 % (0.0-2.0); EOS # 0.1 K/uL (0.0-0.7); EOS % 1.1 % (0.0-4.0); HEMOGLOBIN 12.7 g/dL (11.0-16.0); LYMPH # 2.5 K/uL (1.0-4.3); LYMPH % 32.2 % (20.0-40.0); MEAN CELL VOLUME 82.3 fL (81.0-99.0); MEAN CORPUSCULAR HEMOGLOBIN 26.8 pg (27.0-31.0); MEAN CORPUSCULAR HGB CONC 32.5 g/dL (33.0-37.0); MONO # 0.4 K/uL (0.0-0.8); MONO % 5.2 % (0.0-10.0); NEUT # 4.7 K/uL (1.8-7.0); NEUT % 60.9 % (50.0-75.0); RBC 4.75 Mil/uL (3.80-5.20); RED CELL DISTRIBUTION WIDTH 21.9 % (11.5-14.5); WHITE BLOOD COUNT 7.6 K/uL (4.8-10.8)
[2018-07-31] MEDS ORDERED: Dexamethasone 4 mg/1 ml ONE (01:16)
[2018-07-31] MEDS ORDERED: Sodium Chloride 0.9% 1,000 ML ONE (01:17)
[2018-07-31] MEDS ORDERED: Magnesium Sulfate 1 gm in D5W 1 GM/100 ML BAG IVPB ONE (01:17)
[2018-07-31 01:26] LABS: BLOOD UREA NITROGEN 11 mg/dL (7-17); CALCIUM 9.2 mg/dl (8.6-10.4); GFR NON-AFRICAN AMERICAN > 60
[2018-07-31 02:32] VITALS: BP 118/68; PULSE 75; RESP 16; TEMP 97.9
[2018-08-02 11:54] VITALS: O2SAT 99
== END 2018-07-31 02:31 | disposition home or self-care (01) ==
LOC: C.ER 00:33
DX: R51 Headache (principal); E86.0 Dehydration; D64.9 Anemia, unspecified
CPT/HCPCS: 80048; 82948; 85025; 96365; 96375; 99284; J1100; J1885; J2765; J3475; J7030